=== PATIENT | male | born 1965 | race African-American/Black ===

== ENCOUNTER 2017-07-05 08:33 | Emergency (ER) | payer MEDICARE, MEDICAID ==
[~2017-07-05] VITALS: Ht 175.3 cm; Wt 80.0 kg
[2017-07-05] MEDS ORDERED: BENZ1TAB7 GT (08:41)
[2017-07-05 10:15] VITALS: BP 139/93
[2017-07-05 10:45] LABS: HEMATOCRIT. 48.4 % (42.0-52.0); HEMOGLOBIN. 15.6 g/dL (14.0-18.0); MEAN CORPUSCULAR HEMOGLOBIN 26.4 pg (28.0-32.0); PLATELET 161 x1000/uL (130-400); RED CELL DISTRIBUTION WIDTH 13.9 % (11.6-14.6)
[2017-07-05 10:59] LABS: CARBON DIOXIDE 31 mEq/L (21-32); CHLORIDE 106 mEq/L (98-107)
[2017-07-05 11:25] LABS: PLATELET ESTIMATE NORMAL
== END 2017-07-05 12:36 | disposition home or self-care (01) ==
LOC: ER 08:43
DX: K92.2 Gastrointestinal hemorrhage, unspecified (principal)
CPT/HCPCS: 36415; 80048; 85007; 85027; 99284